=== PATIENT | male | born 1995 | race Two or more races ===

== ENCOUNTER → 2017-02-02 | Emergency (ER) | payer OTHER ==
[~2017-02-02] VITALS: Ht 175.3 cm; Wt 68.0 kg
--- NOTE | 2017-02-02 10:47 | Emergency Room Report ---
History of Present Illness Time Seen by [email or web address] Presenting Problem in Triage Pt arrived:Ambulance Stretcher Presenting Problem:PT WAS AT HOME WITH OTHER PEOPLE WHEN THEY SUPPOSEDLY STARTED ACTING FUNNY AFTER INGESTING SOME COOKIES THEY GOT WHILE IN TOWN. PT THINKS THERE WAS POSSIBLY DRUGS IN THE COOKIOES. PT ARRIVES PER EMS ALERT AND SHAKING. PT DENIES ANY PAIN BESIDES FEELING DIZZY. 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 N Clinical Suspician of Infection? N Mental Status: 1 - Regular (Normal Baseline) Sepsis Risk:Low Sepsis Risk Have you (or family members/close friends) recently traveled outside the [place]? N If Yes, where/when: Have you had exposure to infectious disease within the past month? N TB? Other? Specify: Patient ingested some cookies that he stated tasted like marijuanaike marijuana he denies any pain but he feels shaky as some nausea feels some lightheadedness. multiple individuals involved all proved presented to the emergency room all who had ingested cookies. ALLERGIES Coded Allergies: No Known Allergies (02/02/17) Home Medications Reported Medications No Known Home Medications History Medical History General CAD? No Angina: No IN: No Hypertension? No Hyperlipidemia? No CHF? No DVT? No PE? No COPD? No Asthma? No Anemia? No GERD? No Gastric ulcers? No GI Bleed? No Hernia? No Thyroid Problems? No Hypothyroidism? No CVA? No Seizures? No Diabetes? No Renal Insuffiency? No End Stage Renal Disease? No UTI? No Stones? No BPH? No GB Disease: No Nephritic Syndrome? No Asplenia? No Hepatitis? No Sickle Cell Disease? No Arthritis? No Migraines? No Cataracts? No Glaucoma? No MRSA? No HIV? No TB? No Anxiety? No Depression? No Cancer? No More? No Immunization Hx DT/Tetanus Unknown Surgical Hx Previous Surgery?N Social History Smoking Hx Smoker: Never Smoker Tobacco: No Alcohol Alcohol: Yes Review of Systems All Other Systems Reviewed and Negative Physical Exam Vital Signs Vital Signs Date Time Temp Pulse Resp B/P Pulse O2 O2 Flow FiO2 Ox Delivery Rate 02/02 1509 86 16 139/62 100 02/02 1422 77 16 140/63 100 02/02 1350 77 16 145/65 100 02/02 1244 86 16 150/80 100 02/02 1201 73 16 137/65 100 02/02 1120 98.6 107 16 146/82 100 02/02 1118 16 02/02 1035 98.6 120 16 159/94 100 General Appearance: Nontoxic appears somewhat shaky Head: Normocephalic, without obvious abnormality, atraumatic. Eyes: conjunctiva/corneas clear ENT: Mucous membranes moist. Neck: No jugular venous distention. Cardiac: regular rate and rhythm Lungs: Clear to auscultation bilaterally Abdomen: Nontender, Nondistended, positive bowel sounds, no rebound : No CVA tenderness Extremities: no edema Musculoskeletal: No chest wall tenderness Skin: No rashes or lesions to exposed skin. Neurologic: Alert. No gross focal deficits Psychiatric: anxious affect (Ronni GARCIA, [place]) General Appearance mild distress Respiratory Status No: respiratory distress. Cardiovascular normal exam Neurologic alert Medical Decision Making LABS/Meds/Orders Pt receiving controlled substance in ED? No Comment Potassiums come back low IV potassium replacement ordered 1144 I have discussed with poison control to see if there is any regional pattern of any overdose here that I have to individuals with potassiums at 2.7 and lasted the same substance which is likely marijuana plus some other unknown substance, and to get thier input 1222 ER electrocardiogram read by myself rate 110 sinus tachycardia. pr 162. qrs 94 QT corrected 446 normal axis nonspecific electrocardiogram. Comparison to the prior electrocardiogram I don't say any progression or change in any of the intervals except for some decrease in the QT corrected. pt sleeping, arouses to minimal physical stimulation 115 pt arouses to voice, no complaints. 318 pt without complaints Results/Orders Laboratory Tests 02/02/17 1420: Potassium 4.6 02/02/17 1215: ABG pH 7.39, ABG pCO2 (Temp Corrct 37.4, ABG pO2 (Temp Correct 109.3 H, ABG HCO3 22.1, ABG Total CO2 23.2, ABG O2 Sat (Calculated) 97.8, ABG Base Excess - 2.9 L, Wilder Test ACCEPTABLE, Blood Gas Comments RIGHT RADIAL 02/02/17 1030: Troponin I < 0.02 02/02/17 1030: Sodium 136, Potassium 2.7 *L, Chloride 102, Carbon Dioxide 25, BUN 18, Creatinine 1.2, Estimated Creat Clear 93, Estimated GFR (MDRD) 76, Glucose 200 H, Calcium 8.9, Total Bilirubin 0.5, AST 29, ALT 29, Alkaline Phosphatase 107, Total Protein 7.8, Albumin 4.9, Globulin 2.9, Albumin/Globulin Ratio 1.7, WBC 7.7, RBC 5.02, Hgb 15.1, Hct 43.3, MCV 86.2, RDW 12.6, Plt Count 302, MPV 7.3 L , Gran % 41.5, Gran # 3.2, Lymphocytes % 48.9, Monocytes % 5.4, Eosinophils % 3.5, Basophils % 0.7, Lymphocytes # 3.8, Monocytes # 0.4, Eosinophils # 0.3, Basophils # 0.1, PUBS MCHC 34.8, MCH 30.0, Opiates Screen NEGATIVE, Urine Methadone Screen NEGATIVE, Barbiturates NEGATIVE, Phencyclidine Screen NEGATIVE, Amphetamines Screen NEGATIVE, Benzodiazepines Screen NEGATIVE, Cocaine Screen NEGATIVE, Marijuana (THC) Screen POSITIVE H, Urine Color YELLOW, Urine Appearance CLEAR, Urine pH 6.0, Ur Specific [place] >= 1.030, Urine Protein TRACE H, Urine Ketones NEGATIVE, Urine Blood NEGATIVE, Urine Nitrate NEGATIVE, Urine Bilirubin NEGATIVE, Urine Urobilinogen 0.2, Ur Leukocyte Esterase NEGATIVE , Urine RBC NONE, Urine WBC NONE, Ur Squamous Epith Cells OCC, Urine Bacteria OCC, Urine Glucose NEGATIVE Current Medication Orders Sig/Omid Start time Last Medication Dose Route Stop Time Status Admin Potassium Chloride/ 100 ML .STK-MED ONE 02/02 1203 DC Water IV Potassium Chloride 40 MEQ ONCE ONE 02/02 1145 DC PO 02/02 1146 Potassium Chloride/ 100 ML ONCE ONE 02/02 1145 DC 02/02 Water IV 02/02 1344 1210 Ondansetron HCl 0 .STK-MED ONE 02/02 1106 DC .ROUTE Sodium Chloride 1,000 ML .STK-MED ONE 02/02 1106 DC IV Lorazepam 0.5 MG ONCE ONE 02/02 1100 DC 02/02 IV 02/02 1101 1118 Ondansetron HCl 4 MG ONCE ONE 02/02 1100 DC 02/02 IV 02/02 1101 1119 Sodium Chloride 1,000 ML .Q1H1M 02/02 1100 DC 02/02 IV 02/02 1200 1119 Sodium Chloride 10 ML PRN PRN 02/02 1100 AC IV 02/03 1046 Sodium Chloride 10 ML PRN PRN 02/02 1045 AC IV 02/03 1039 Orders Procedure Date/time Status POTASSIUM 02/02 1403 Complete ELECTROCARDIOGRAM REQUEST 02/02 1205 Active ARTERIAL BLOOD GAS REQUEST 02/02 1204 Active TROPONIN I 02/02 1153 Complete ELECTROCARDIOGRAM REQUEST 02/02 1039 Active IV SALINE LOCK 02/02 1039 Active URINALYSIS/COMPLETE 02/02 1039 Complete DRUG ABUSE SCREEN (TRIAGE) 02/02 1039 Complete CBC WITH AUTO DIFF 02/02 1039 Complete CHEM 12 PROFILE 02/02 1039 Complete [id number] BY SAME DR 02/02 UNK Active 12 LEAD EKG-BESSON (INITIAL) 02/02 UNK Active CM/EKG CM/public service administrator Rhythm Sinus Tachycardia Rate 115 Ectopy No Comments ER electrocardiogram read by myself sinus tachycardia rightward axis and nonspecific electrocardiogram QT corrected 473 Departure Departure Time of Disposition 1519 Disposition DC Home or Self Care(routine) Clinical Impression Primary Impression: Drug ingestion Qualifiers: Encounter type: initial encounter Injury intent: undetermined intent Qualified Code: T50.904A - Poisoning by unspecified drugs, medicaments and biological substances, undetermined, initial encounter Secondary Impressions: Hypokalemia Condition STABLE Referrals NO REFERRAL Patient Instructions Drug Abuse and Drug Addiction Additional Instructions return if worse or any problems. Prescriptions Current Visit Scripts No Known Home Medications ED Critical Care Critical Care Yes Time spent 30-74 min Vital system(s) involved: Metabolic Failure I was present at bedside for Coordinating pt's care, Interpreting EKGs/Strips , During my initial exam, Reviewing lab results, Discussing pt condition, For re -examinations, Examining radiographs If Critical Care minutes are documented, the time involved in the performance of seperately reportable procedures was not counted toward critical care time documented. I directly delivered medical care to this critically ill and/or injured patient. Timely evaluation and treatment was necessary to address the significant organ system(s) dysfunction present in this patient. at 1520
[2017-02-02 10:58] LABS: HEMOGLOBIN 15.1 g/dL (14.1-18.0); LYMPH # 3.8 K/mm3 (0.7-4.5); LYMPH % 48.9 % (10-50)
[2017-02-02 11:06] LABS: URINE BILIRUBIN - DIPSTICK NEGATIVE (NEG); URINE BLOOD NEGATIVE (NEG)
[2017-02-02 11:12] LABS: AMPHETAMINES/METAMPHETAMINES NEGATIVE ng/mL (<1000)
[2017-02-02 11:26] LABS: URINE SQUAMOUS CELLS OCC #/hpf (OCC)
[2017-02-02 12:39] LABS: ALLEN'S TEST ACCEPTABLE; ARTERIAL ABE -2.9 MMOL/L (-2.4-+2.3); ARTERIAL PO2 109.3 MMHG (80-100); ARTERIAL TCO2 23.2 MMOL/L (23-27); OXYGEN ROOM AIR
--- OUTSIDE RECORDS SUMMARY | 2017-02-02 12:46 | External Medical Summary Rpt | CCD ---
Demographics Preferred Language Yakut Marital Status Unknown Hinduism Affiliation Unknown Race Unknown Ethnic Group Unknown Author Author , GRAHAM STEVENSON Address Unknown Phone Purpose Continuity of Care Document - through 2016
--- OUTSIDE RECORDS SUMMARY | 2017-02-02 12:46 | External Medical Summary Rpt | CCD ---
Demographics Preferred Language Persian Marital Status Unknown Christianity Affiliation Unknown Race Unknown Ethnic Group Unknown Author Author , GRAHAM STEVENSON Address Unknown Phone Purpose Continuity of Care Document - through 2016
--- OUTSIDE RECORDS SUMMARY | 2017-02-02 12:47 | External Medical Summary Rpt | CCD ---
Demographics Preferred Language Turkmen Marital Status Unknown Caodaism Affiliation Unknown Race Unknown Ethnic Group Unknown Author Author , GRAHAM STEVENSON Address Unknown Phone Immunization No patient found.
--- OUTSIDE RECORDS SUMMARY | 2017-02-02 12:47 | External Medical Summary Rpt | CCD ---
Author Author [employer] Organization [employer] Address Unknown Phone Unavailable Purpose Continuity of Care Document - through 2016
--- OUTSIDE RECORDS SUMMARY | 2017-02-02 12:47 | External Medical Summary Rpt | CCD ---
Demographics Preferred Language Samoan Marital Status Unknown Nondenominational Affiliation Unknown Race Unknown Ethnic Group Unknown Author Author , GRAHAM STEVENSON Address Unknown Phone Immunization No patient found.
[2017-02-02 15:45] VITALS: BP 139/62
== END ==
LOC: ER 10:33
PROVIDERS: Emergency Medicine
DX: T50.904A Poisoning by unspecified drugs, medicaments and biological substances, undetermined, initial encounter (principal); E87.6 Hypokalemia
CPT/HCPCS: J2405